=== PATIENT | female | born 2000 | race Caucasian/White ===

== ENCOUNTER 2025-02-02 17:43 | Emergency (ER) | payer BC, OTHER ==
[~2025-02-02] VITALS: Ht 167.6 cm; Wt 59.9 kg
--- OUTSIDE RECORDS SUMMARY | 2025-02-02 19:50 | XMS ---
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 [place] VISIT COUNT (12 MO.) [address] TOTAL 4 NOTE: Visits indicate total known visits. ED/UCC VISIT TRACKING (12 MO.) 02/02/2025 17:44 [facility] TYPE: Emergency COMPLAINT: - ABDOMINAL PAIN 01/31/2025 00:33 [facility] TYPE: Emergency DIAGNOSES: - Epigastric pain - Abdominal Pain 01/30/2025 05:27 [facility] TYPE: Emergency DIAGNOSES: - Epigastric pain - Nausea with vomiting, unspecified - ABD PAIN NAUSEA 01/02/2025 13:49 [facility] [place] TYPE: Emergency DIAGNOSES: - Foreign body in vulva and vagina, initial encounter - Inflammatory disease of cervix uteri - Other foreign body entering into or through a natural orifice, initial encounter - GENERAL INPATIENT VISIT TRACKING (12 MO.) No inpatient visits to display in this time frame [email or web address]
[2025-02-02] MEDS ORDERED: ONDANSETRON ODT8 MG (19:53)
[2025-02-02] MEDS ORDERED: PEPCID20 MG (19:53)
[2025-02-02 20:15] LABS: BASOPHILS 0.7 % (0.1-1.2); EOSINOPHILS 1.3 % (0.7-5.8); LYMPHOCYTES 25.9 % (19.3-51.7); MCH 27.3 PG (25.6-32.2); MCHC 32.6 g/dL (32.2-35.5); MCV 83.9 fL (79.4-94.8); MONOCYTES 7.0 % (4.7-12.5); NEUTROPHILS 64.5 % (34.0-71.1); RBC 4.79 M/uL (3.93-5.22)
[2025-02-02 20:16] LABS: BLOOD/HGB, URINE NEGATIVE (Negative); KETONE, URINE NEGATIVE (Negative); LEUK ESTERASE, URINE NEGATIVE (negative); NITRITE, URINE NEGATIVE (negative)
[2025-02-02 20:30] LABS: ALT (SGPT) 10.0 U/L (14-59); AST (SGOT) 13.0 U/L (15-37); GLOMERULAR FILTRATION RATE,EST 125.0 mL/min (>60); PROTEIN, TOTAL 7.2 g/dL (6.4-8.2); UREA NITROGEN 9.0 mg/dL (7-18)
[2025-02-02] MEDS ORDERED: LIDOCAINE & ANTACID 35 ML BTL PO ONE (20:45)
[2025-02-02] MEDS ORDERED: CARAFATE1 GM PO (21:33)
[2025-02-02] MEDS ORDERED: ONE-A-DAY PREN1 EAC2 PO (21:34)
[2025-02-02 21:49] VITALS: BP 129/88
== END 2025-02-02 21:50 | disposition home or self-care (01) ==
LOC: ED 17:43
PROVIDERS: Internal Medicine
DX: K21.9 Gastro-esophageal reflux disease without esophagitis (principal); Z33.1 Pregnant state, incidental; Z79.899 Other long term (current) drug therapy
CPT/HCPCS: 36415; 80053; 81003; 83690; 84702; 84703; 85025; 99284